=== PATIENT | male | born 1995 | race Caucasian/White ===

== ENCOUNTER 2020-11-07 06:20 | Day surgery (SDC) | payer OTHER ==
[~2020-11-07] VITALS: Ht 182.9 cm; Wt 94.5 kg
[~2020-11-07 06:20] MED LIST: LR 1,000 ML IV ONE; ceFAZolin SOD 2 GM in IV 1 EA IV ONE
[2020-11-07] MEDS ORDERED: fentaNYL 250 MCG/5 ML INJECTION (J3010) As Ordered ONE (06:41)
[2020-11-07] MEDS ORDERED: MIDAZOLAM INJ 2MG/2ML VIAL (J2250 PER 1MG) As Ordered ONE (06:41)
[2020-11-07] MEDS ORDERED: LIDOCAINE 2% 100MG/5ML SDV (FOR ANES.) As Ordered ONE (06:42)
[2020-11-07] MEDS ORDERED: ROCURONIUM BROMIDE 50 MG/5 ML VIAL As Ordered ONE ×2 (06:42→12:38)
[2020-11-07] MEDS ORDERED: propofoL 200 MG/20 ML VIAL As Ordered ONE (06:42)
[2020-11-07] MEDS ORDERED: SUGAMMADEX SODIUM 500 MG/5 ML VIAL (BRIDION) As Ordered ONE (06:43)
[2020-11-07] MEDS ORDERED: ACETAMINOPHEN 1000MG 100ML IV BTL (OFIRMEV) (J0131 PER 10MG) As Ordered ONE (06:43)
[2020-11-07] MEDS ORDERED: dexameTHASONE 4 MG/ML 1ML VIAL (J1100 PER 1MG) As Ordered ONE ×2 (06:43→10:10)
[2020-11-07] MEDS ORDERED: BUPIVACAINE HCL 0.25% 30ML VIAL As Ordered ONE (07:14)
[2020-11-07] MEDS ORDERED: LIDOCAINE 1% SDV 30ML VIAL As Ordered ONE (07:14)
[2020-11-07] MEDS ORDERED: LR 1,000 ML IV SCH (08:35)
[2020-11-07] MEDS ORDERED: oxyCODONE 5MG TAB PO PRN (08:35)
[2020-11-07] MEDS ORDERED: ONDANSETRON 4MG/2ML VIAL IV PRN ×2 (08:35→10:00)
[2020-11-07] MEDS ORDERED: fentaNYL 100 MCG/2 ML INJECTION (J3010) IV PRN (08:35)
[2020-11-07] MEDS ORDERED: HYDROMORPHONE HCL 0.5 MG/ 0.5 ML SYRINGE (J1170 PER 1) IV PRN (08:35)
--- NOTE | 2020-11-07 08:40 | ROOPDOC ---
[facility] Report Of Operation Report of Operation DATE OF PROCEDURE: 11/07/20 PREPROCEDURE DIAGNOSES: umbilical hernia. 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 PROCEDURE: Open umbilical hernia repair (primary repair). SURGEON: Charles Martinez MD BACTERIOLOGIST PHARMACEUTICAL: ANESTHESIA: General endotracheal anesthesia. ESTIMATED BLOOD LOSS: Approximately 10 mL. COMPLICATIONS: none. 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 Patient with occasional discomfort with effort. PROCEDURE NOTE: 2.5 cm fatty tissue herniation, the defect itself is only about 1.5 cms (size of my 5th finger). Healthy fascial edges, not much diastases; thus I decided to forego placement of mesh. DESCRIPTION OF PROCEDURE: . Patient received a dose of Ancef 2 g IV preoperatively for wound prophylaxis. He was brought to the operating room, placed supine on the table. TEDs and bilateral sequential compression devices placed on both lower extremities were DVT prophylaxis. Gen. endotracheal anesthesia was started. His abdomen widely prepped and draped in the usual sterile fashion. We paused for a surgical timeout using both pre-incision safety checklist to verify correct patient, procedure site and additional clinical information prior to beginning the procedure He has a roughly 2 cm soft tissue bulging at the top portion of his umbilical cleft. This is nonreducible. There is no associated skin changes. The area around the umbilicus including the skin and subcutaneous tissue is liberally infiltrated with a combination of 1% lidocaine and 1/4% Marcaine. A curvilinear incision at one of the umbilical cleft was then created. The subcutaneous tissue was dissected to the level of the anterior fascia. The umbilical stalk and the herniating soft tissue was circumferentially dissected. The umbilical stalk was freed up from its connection to the abdominal wall fascia. We continued our dissection circumferentially and superiorly to free up the anterior fascia from the surrounding subcutaneous tissue to about 3 cm circumferentially. The herniated fat tissue was dissected from the umbilical skin cleft and removed and sent off as a specimen. The divided preperitoneal tissue was then reduced back into the abdominal cavity. I then placed a 4 x 4 gauze through the fascial defect to reduce further any nearby bowels as well as surrounding intra- abdominal tissue to avoid injury to this and closure. I then evaluated the fascia. There is roughly about a 1.5 cm circular defect, roughly the size of my fifth finger. The abdominal wall appears robust and healthy save for a robotic 2 mm edge which is slightly thinned out. This was freshened and divided. This seems to be amenable to primary closure without the need for a mesh given the size of the defect and the robustness of the abdominal wall tissue. The patient also does not have any significant diastases. I then used a 0 PDS to close the superior and inferior portion of the defect in a mattress portion and then placed another mattress suture at the mid point to close the defect. Hemostasis was then checked and once satisfied the incision was closed in layers. The bottom of the umbilical cleft was sutured back into the anterior fascia to re- create the cleft. The subcutaneous tissue was approximated with 3-0 Vicryl and the skin incisions closed with 4-0 Monocryl in subcutaneous thickening or fashion. Steri-Strips a bulldog gauze dressing and Tegaderm was then used to cover the incision. Patient tolerated the procedure well. Was promptly awakened, extubated and brought to recovery room in stable condition. CHARLES MARTINEZ MD Nov 07, 2020 08:40
[2020-11-07] MEDS ORDERED: KETOROLAC 30 MG/ML 1ML VIAL IV PRN (10:00)
[2020-11-07] MEDS ORDERED: PERCOCET 5MG/325MG TAB PO PRN (10:00)
[2020-11-07 10:15] VITALS: BP 114/64
== END 2020-11-07 10:20 | disposition home or self-care (01) ==
LOC: M SDC 06:20
PROVIDERS: ATTEND Surgery
DX: K42.0 Umbilical hernia with obstruction, without gangrene (principal)
CPT/HCPCS: 49587; 88302; J0131; J0690; J1100; J2250; J3010

== ENCOUNTER 2020-12-14 20:02 | Emergency (ER) | payer OTHER ==
[~2020-12-14] VITALS: Ht 182.9 cm; Wt 94.8 kg
[2020-12-14] MEDS ORDERED: FAMOTIDINE INJ 20MG/2ML VIAL (S0028 PER 1) IVP ONE (20:45)
[2020-12-14] MEDS ORDERED: methylPREDNISolone 125MG 2ML VIAL IV ONE (20:45)
[2020-12-14] MEDS ORDERED: diphenhydrAMINE 50MG/ML VIAL (J1200) IV ONE (22:05)
[2020-12-14] MEDS ORDERED: PRED20TA PO (22:07)
[2020-12-14] MEDS ORDERED: PEPC1TAB5 PO (22:07)
[2020-12-14] MEDS ORDERED: EPIP0.3I2 IM (22:12)
[2020-12-14 22:45] VITALS: BP 130/76
[2020-12-14] MEDS ORDERED: diphenhydrAMINE 50MG CAP PO ONE (22:50)
== END 2020-12-14 23:04 | disposition home or self-care (01) ==
LOC: M ED 20:02
DX: L50.9 Urticaria, unspecified (principal)
CPT/HCPCS: 96374; 96375; 99284; J2930